=== PATIENT | female | born 1965 | race Caucasian/White ===

== ENCOUNTER 2024-04-13 14:49 | Emergency (ER) | payer OTHER, SELFPAY ==
[2024-04-13] MEDS: ADACEL 0.5 ML IM (15:27)
[2024-04-13] MEDS: KEFLEX 500 MG PO (15:28)
--- NOTE | 2024-04-13 15:59 | ED.GENMED ---
History of Present Illness
General
Chief Complaint: Skin Surface Trauma
Source: patient
Exam Limitations: none
Time Seen by Provider: 04/13/24 14:57
Nursing documentation reviewed up to this point in time: agreed with
History of Present Illness
History of Present Illness:
58-year-old female past medical history of hypertension presenting to the emergency department today with concerns of laceration to her right second and third fingers on the dorsal aspect. This occurred from a log splitter prior to arrival. Denies
any numbness weakness. Was wearing gloves and denies any obvious contamination. Denies any history of diabetes and is unsure when her last tetanus shot was.
Review of Systems
Review of Systems
Allergies reviewed?: Yes
All Other Systems: ROS reviewed and negative except as documented in HPI and ROS
Phy Exam
Physical Exam
Physical Exam:
GENERAL: Alert , in no apparent distress
EYE: pupils equal and reactive
NECK: Supple, no significant adenopathy.
ENT: o/p clr, mmm.
CARDIAC: Regular rate and rhythm .
LUNGS: Clear breath sounds bilaterally, no acute respiratory distress, no wheezes/rales/rhonchi
ABDOMEN: Soft, without focal tenderness, no r/g, no cvat
NEUROLOGICAL: Alert and oriented, no focal neuro deficits
SKIN: 2.5 cm laceration to the base of the dorsal aspect of the middle finger on the right side there is a 5 mm laceration to the dorsal aspect of the left index finger just proximal to the PIP as well as a 5 mm laceration to the radial aspect of
the middle finger on the right hand just distal to the PIP subcutaneous in depth. Warm and dry, skin intact.
MUSCULOSKELETAL: No edema, well perfused.
PSYCH: Normal and appropriate interaction.
Course
Orders/Labs/Results
Orders:
Orders
04/13/24 14:54
Finger(s)/Thumb 2 View Rt [CR Finger(s)/thumb Min 2 Vw Rt] Urgent
Comment:
Reason For Exam: hand cut with log splitter
Indicate Which Finger:: Middle Finger
04/13/24 15:16
Cephalexin Monohydrate [Keflex] 500 mg PO NOW STA
Tetanus/Diphth/Acelpertussis [Adacel] 0.5 ml IM .ONCE ONE
Procedures
Laceration Closure
Right Second Finger:
Status of Wound: clean
Size of Wound in cm: 2.5
Description of Wound Edges: ragged and surrounded by abrasion
Preparation: cleaned with saline
Anesthesia: 1% Lidocaine
Revision/Debridement: minor revision, debrided and irrigate-direct pressure
Wound exploration: explored to base- no FB and no tendon involvement
Type of Closure: single layer closure
Skin Closure Material: 4-0 nylon
Number of sutures: 6
Right Proximal Dorsal Second Finger:
Status of Wound: clean
Size of Wound in cm: 0.5
Description of Wound Edges: sharp
Preparation: cleaned with saline
Anesthesia: 1% Lidocaine
Revision/Debridement: routine- no revision and irrigate-direct pressure
Wound exploration: explored to base- no FB and no tendon involvement
Type of Closure: single layer closure
Skin Closure Material: 4-0 nylon
Number of sutures: 2
Right Middle Radial Third Finger:
Status of Wound: clean
Size of Wound in cm: 0.5
Description of Wound Edges: sharp
Preparation: cleaned with saline
Anesthesia: 1% Lidocaine
Revision/Debridement: routine- no revision and irrigate-direct pressure
Wound exploration: explored to base- no FB and no tendon involvement
Type of Closure: single layer closure
Skin Closure Material: 4-0 nylon
Number of sutures: 2
MDM/Problems Addressed
MDM/Problems Addressed:
58-year-old female presenting to the emergency department concerns of a laceration to her right middle finger and index finger from a wood splitter prior to arrival. Area appears very clean was cleaned and sutured with 10 total stitches to 3
separate lacerations. Neurovascularly intact. X-ray without signs of fracture stable for discharge. She was given empiric antibiotics to reduce risk of infection.
*Critical Care Note
Total Time (30-74mins, 75-104mins- exclusive of procedures): Not Applicable
ED Attending Note
-
Portions of this chart may have been created with voice recognition software.� Occasional wrong word or��sound alike� substitutions may have occurred due to the inherent limitations of voice recognition software.
Discharge Plan
Departure
Patient Disposition: Home (Routine Discharge)
Date of Disposition: 04/13/24
Time of Disposition: 15:59
Patient with high blood pressure during this ER visit?: No
Condition: Good
Covid-19: Not Applicable
Discharge Problem:
Finger laceration
Instructions: Laceration Repair With Stitches (DC)
Prescriptions:
New
cephalexin 500 mg capsule
500 mg PO TID 3 Days Qty: 9 0RF
Stand Alone Forms: Return to Work
Activity Restrictions/Additional Instructions:
You came to the emergency department today with concerns of a laceration to your middle finger and index finger. You had 10 total stitches placed. Please keep the area clean with soap and water 1-2 times daily and keep the area covered over the
next week or so. You put a small amount of antibiotic ointment on top before wrapping it. Please take Keflex 3 times daily for the next 3 days to reduce risk of infection. Please follow-up in 12 to 14 days for suture removal with your primary
care doctor. Return to the emergency department for any worsening, new or concerning symptoms.
Interventions
Interventions:
*Risk Screen - Suicide Last Done: 04/13/24 14:53
*General Assessment Last Done: 04/13/24 14:53
*Neglect/Abuse Screening Last Done: 04/13/24 14:53
*ED COVID-19 Vaccine History Last Done: 04/13/24 14:53
*Nursing Disposition Last Done: 04/13/24 16:17
ED-Skin Assessment Last Done: 04/13/24 15:14
Discharge Date and Time
Discharge Date/Time: 04/13/24 16:17
Print Language: OCCITAN
== END 2024-04-13 16:17 | disposition home or self-care (01) ==
LOC: EMR 14:49
PROVIDERS: EMERGENCY PHYSICIAN Student in an Organized Health Care Education/Training Program; FAMILY PHYSICIAN Family Medicine
DX: S61.212A Laceration without foreign body of right middle finger without damage to nail, initial encounter (principal); S61.210A Laceration without foreign body of right index finger without damage to nail, initial encounter; W31.2XXA Contact with powered woodworking and forming machines, initial encounter; Z23 Encounter for immunization; I10 Essential (primary) hypertension
CPT/HCPCS: 99283; 12002; 90471; 73140; 90715